=== PATIENT | female | born 1935 | race Two or more races ===

== ENCOUNTER 2023-01-27 00:14 | Inpatient (IN) | payer MEDICAID, MEDICARE, OTHER ==
[~2023-01-27] VITALS: Ht 162.6 cm; Wt 82.0 kg
[2023-01-27 00:37] VITALS: PULSE 63; RESP 20; O2SAT 97
[2023-01-27] MEDS ORDERED: KETOROLAC TROMETH 30 MG/ML 1ML VIAL IV ONE (01:30)
[2023-01-27 04:52] LABS: Basophils # (auto) 0.1 10 ^3/uL (0-0.2); Basophils % (auto) 0.4 % (0.0-2.0); Eosinophils # (auto) 0.5 10 ^3/uL (0-0.8); Eosinophils % (auto) 3.4 % (0.0-7.0); Hemoglobin 9.3 g/dL (12.2-16.2); Lymphocytes # (auto) 4.8 10 ^3/uL (0.4-5.4); Lymphocytes % (auto) 30.7 % (10.0-50.0); Mean Corpuscular Hemoglobin 29.3 pg (28.0-32.0); Mean Corpuscular Hgb Conc. 33.1 g/dL (32.0-36.0); Mean Corpuscular Volume 88.4 fL (80.0-100.0); Monocytes # (auto) 1.1 10 ^3/uL (0-1.3); Monocytes % (auto) 6.8 % (0.0-12.0); Neutrophils # (auto) 9.1 10 ^3/uL (1.6-8.6); Neutrophils % (auto) 58.7 % (37.0-80.0); Red Blood Cells 3.17 10^6/uL (4.0-5.20); Red Cell Distribution Width 16.8 % (11.8-14.3); White Blood Cell 15.6 10^3/uL (4.4-10.8)
[2023-01-27 05:11] LABS: BUN/Creatinine Ratio 35.9 (10.0-20.0); Calcium 8.9 mg/dL (8.5-10.1); Magnesium 1.9 mg/dL (1.6-2.6); Potassium 3.7 mmol/L (3.5-5.1)
[2023-01-27 05:14] LABS: Bilirubin, Total 0.1 mg/dL (0.2-1.0); Total Protein 6.7 g/dL (6.4-8.2)
[2023-01-27] MEDS ORDERED: VANCOMYCIN 1GM/250ML 250 ML IV ONE (05:30)
[2023-01-27] MEDS ORDERED: PIPERACILLIN-TAZOB 3.375GM 100 ML IV ONE (05:30)
[2023-01-27] MEDS ORDERED: DEXTROSE (50%) 50ML SYRG IV ONE (05:30)
[2023-01-27] MEDS ORDERED: D5W/SOD CHL 0.45% 1,000 ML IV ONE (05:30)
[2023-01-27] MEDS ORDERED: ONDANSETRON HCL 4 MG/2 ML VIAL IV PRN (05:45)
[2023-01-27] MEDS ORDERED: DEXTROSE (50%) 50ML SYRG IV PRN (05:45)
[2023-01-27] MEDS ORDERED: DOCUSATE SOD 100 MG CAP PO PRN (05:45)
[2023-01-27] MEDS ORDERED: MORPHINE SULFATE INJ 2 MG/ml SYRG IV PRN (05:45)
[2023-01-27] MEDS ORDERED: HYDROcodone-ACET 5/325MG TAB PO PRN (05:45)
[2023-01-27] MEDS ORDERED: NITROGLYCERIN 0.4 MG SL TAB SL PRN (05:45)
[2023-01-27] MEDS ORDERED: VANCOMYCIN PER PHARMACY 0 MG IV SCH (05:45)
[2023-01-27] MEDS: cefTRIAXone 1GM/50ML D5W 50 ML IV SCH (08:51)
[2023-01-27] MEDS: InsuLIN REG 1unit/0.01ml Soln (100units/ml) SC SCH ×4 (08:51→22:22)
[2023-01-27] MEDS: ACCU-CHEK COMFORT CURVE STRIP VI SCH ×4 (08:51→21:40)
[2023-01-27 09:40] VITALS: PULSE 58; RESP 20; O2SAT 96
[2023-01-27] MEDS ORDERED: METO25TA36 PO (12:46)
[2023-01-27] MEDS ORDERED: ATOR20TA50 PO (12:46)
[2023-01-27] MEDS ORDERED: TRAZ-228 PO (12:46)
[2023-01-27] MEDS ORDERED: NIFE90TA75 PO (12:46)
[2023-01-27] MEDS ORDERED: GABA-1250 PO (12:46)
[2023-01-27] MEDS ORDERED: GLIP5TAB12 PO (12:46)
[2023-01-27] MEDS ORDERED: LISI2.5T47 PO (12:46)
[2023-01-27] MEDS ORDERED: ALPR0.5T PO (12:46)
[2023-01-27] MEDS ORDERED: ESCI5TAB PO (12:46)
[2023-01-27] MEDS ORDERED: METF-370 PO (12:46)
[2023-01-27] MEDS ORDERED: hydrALAZINE HCL 20 MG/ML VL IV PRN ×2 (13:30→17:00)
[2023-01-27] MEDS: ALPRAZolam 0.5 MG TAB PO PRN (14:48)
[2023-01-27] MEDS: GABAPENTIN 300 MG CAP PO SCH ×2 (14:48→22:21)
[2023-01-27 17:24] LABS: Cholesterol 118 mg/dL (< 200)
[2023-01-27 17:26] LABS: HDL Cholesterol 45 mg/dL (40-59); LDL Cholesterol 55 mg/dL (< 100); Triglycerides 141 mg/dL (< 150)
[2023-01-27] MEDS ORDERED: PATIENTS OWN MEDICATION (Trazodone Hcl 50 MG) PO SCH (18:00)
[2023-01-27] MEDS: ATORVASTATIN 20 MG TAB PO SCH (18:58)
[2023-01-28] VITALS (10 sets, daily range): BP systolic 0–174; BP diastolic 39–68; PULSE 47–65; RESP 16–20; TEMP 98.3–99.3; O2SAT 94–99
[2023-01-28] MEDS: VANCOMYCIN 1GM/250ML 250 ML IV SCH ×2 (00:30→18:21)
[2023-01-28] MEDS: InsuLIN REG 1unit/0.01ml Soln (100units/ml) SC SCH ×4 (06:06→21:23)
[2023-01-28] MEDS: GABAPENTIN 300 MG CAP PO SCH ×3 (06:19→21:21)
[2023-01-28] MEDS: ACCU-CHEK COMFORT CURVE STRIP VI SCH ×4 (06:20→20:55)
[2023-01-28 07:12] LABS: Basophils # (auto) 0 10 ^3/uL (0-0.2); Basophils % (auto) 0.5 % (0.0-2.0); Eosinophils # (auto) 0.6 10 ^3/uL (0-0.8); Eosinophils % (auto) 5.8 % (0.0-7.0); Hematocrit 25.8 % (36.0-46.0); Hemoglobin 8.6 g/dL (12.2-16.2); Lymphocytes # (auto) 2.1 10 ^3/uL (0.4-5.4); Lymphocytes % (auto) 20.8 % (10.0-50.0); Mean Corpuscular Hemoglobin 29.8 pg (28.0-32.0); Mean Corpuscular Hgb Conc. 33.2 g/dL (32.0-36.0); Mean Corpuscular Volume 89.8 fL (80.0-100.0); Monocytes # (auto) 0.6 10 ^3/uL (0-1.3); Monocytes % (auto) 6.3 % (0.0-12.0); Neutrophils # (auto) 6.7 10 ^3/uL (1.6-8.6); Neutrophils % (auto) 66.6 % (37.0-80.0); Nucleated Red Blood Cells % 0.1 %; Red Blood Cells 2.87 10^6/uL (4.0-5.20); Red Cell Distribution Width 16.8 % (11.8-14.3); White Blood Cell 10.1 10^3/uL (4.4-10.8)
[2023-01-28 07:18] LABS: Calcium 8.6 mg/dL (8.5-10.1); Potassium 3.7 mmol/L (3.5-5.1)
[2023-01-28 07:21] LABS: Albumin 2.7 g/dL (3.4-5.0); BUN/Creatinine Ratio 27.8 (10.0-20.0)
[2023-01-28 07:24] LABS: Bilirubin, Total 0.3 mg/dL (0.2-1.0); Total Protein 6.4 g/dL (6.4-8.2)
[2023-01-28] MEDS: cefTRIAXone 1GM/50ML D5W 50 ML IV SCH (08:38)
[2023-01-28] MEDS ORDERED: PATIENTS OWN MEDICATION (Nifedipine (Nifedipine Er) 1 TAB) PO SCH (10:00)
[2023-01-28] MEDS ORDERED: LISINOPRIL 5 MG TAB PO SCH (10:00)
[2023-01-28] MEDS ORDERED: PATIENTS OWN MEDICATION (Escitalopram Oxalate (Lexapro) 1 TAB) PO SCH (10:00)
[2023-01-28] MEDS: ASPirin 81 mg TAB PO SCH (11:11)
[2023-01-28] MEDS: LISINOPRIL 10 MG TAB PO SCH (11:27)
[2023-01-28 12:47] LABS: Urine Bacteria NONE SEEN /hpf (None Seen); Urine Blood Negative /uL (Negative); Urine Budding Yeast OCCASIONAL /hpf (None Seen); Urine Clarity HAZY (Clear); Urine Hyaline Cast FEW /lpf (0 - 2); Urine Protein, UAD 1+ (Negative); Urine Specific Gravity 1.011 (1.001-1.035); Urine Urobilinogen Normal (Negative); Urine WBC 138 /hpf (0 - 5)
[2023-01-28 12:50] LABS: Urine Color Straw (Yellow)
[2023-01-28 13:12] LABS: Hepatitis B Surface Antigen Negative (Negative); Hepatitis C Antibody Negative (Negative)
[2023-01-28] MEDS: traMADol HCL 50 MG TAB PO PRN (14:12)
[2023-01-28] MEDS: CITALOPRAM HYDROBR 20 MG TAB PO SCH (16:11)
[2023-01-28] MEDS: NIFEdipine ER 30 MG TAB PO SCH (16:18)
[2023-01-28] MEDS: traZODone HCL 50 MG TAB PO SCH (17:35)
[2023-01-28] MEDS: ATORVASTATIN 20 MG TAB PO SCH (18:20)
[2023-01-28] MEDS: ALPRAZolam 0.5 MG TAB PO PRN (22:28)
[2023-01-29 05:00] VITALS: BP 112/67; PULSE 47; RESP 17; TEMP 98.3; O2SAT 94
[2023-01-29] MEDS: ACETAMINOPHEN 325 MG TAB PO PRN ×2 (05:53→21:00)
[2023-01-29] MEDS: GABAPENTIN 300 MG CAP PO SCH ×3 (05:53→21:00)
[2023-01-29] MEDS: ACCU-CHEK COMFORT CURVE STRIP VI SCH ×4 (05:58→21:07)
[2023-01-29] MEDS: InsuLIN REG 1unit/0.01ml Soln (100units/ml) SC SCH ×4 (06:12→21:08)
[2023-01-29 09:00] VITALS: BP 118/42; PULSE 64; RESP 16; TEMP 97.7; O2SAT 98
[2023-01-29] MEDS: ASPirin 81 mg TAB PO SCH (09:54)
[2023-01-29] MEDS: cefTRIAXone 1GM/50ML D5W 50 ML IV SCH (09:54)
[2023-01-29] MEDS: LISINOPRIL 10 MG TAB PO SCH (09:55)
[2023-01-29] MEDS: CITALOPRAM HYDROBR 20 MG TAB PO SCH (09:56)
[2023-01-29] MEDS: NIFEdipine ER 30 MG TAB PO SCH (09:57)
[2023-01-29] MEDS: traMADol HCL 50 MG TAB PO PRN (10:14)
[2023-01-29] MEDS: VANCOMYCIN 1GM/250ML 250 ML IV SCH (12:33)
[2023-01-29 17:14] VITALS: BP 125/34; PULSE 49; RESP 19; TEMP 98.7; O2SAT 99
[2023-01-29] MEDS: ATORVASTATIN 20 MG TAB PO SCH (18:00)
[2023-01-29] MEDS: traZODone HCL 50 MG TAB PO SCH (18:47)
[2023-01-29 19:03] VITALS: PULSE 44
[2023-01-29 20:00] VITALS: BP 112/46; PULSE 49; PULSE 52; RESP 18; TEMP 98.5; O2SAT 96
[2023-01-29 21:23] VITALS: BP 112/46; PULSE 49; RESP 18; TEMP 98.5; O2SAT 96
[2023-01-29] MEDS: ALPRAZolam 0.5 MG TAB PO PRN (23:30)
[2023-01-30] VITALS (7 sets, daily range): BP systolic 110–147; BP diastolic 37–48; PULSE 36–64; RESP 14–19; TEMP 97.9–98.9; O2SAT 92–98
[2023-01-30] MEDS: VANCOMYCIN 1GM/250ML 250 ML IV SCH ×2 (05:45→23:42)
[2023-01-30] MEDS: GABAPENTIN 300 MG CAP PO SCH ×3 (05:53→21:43)
[2023-01-30] MEDS: ACCU-CHEK COMFORT CURVE STRIP VI SCH ×4 (05:57→21:58)
[2023-01-30] MEDS: InsuLIN REG 1unit/0.01ml Soln (100units/ml) SC SCH ×4 (05:58→21:58)
[2023-01-30] MEDS: cefTRIAXone 1GM/50ML D5W 50 ML IV SCH (09:00)
[2023-01-30] MEDS: ASPirin 81 mg TAB PO SCH (09:24)
[2023-01-30] MEDS: LISINOPRIL 10 MG TAB PO SCH (09:24)
[2023-01-30] MEDS: NIFEdipine ER 30 MG TAB PO SCH (09:25)
[2023-01-30] MEDS: CITALOPRAM HYDROBR 20 MG TAB PO SCH (09:25)
[2023-01-30] MEDS: ATORVASTATIN 20 MG TAB PO SCH (17:49)
[2023-01-30] MEDS: traZODone HCL 50 MG TAB PO SCH (17:49)
[2023-01-31 04:30] VITALS: BP 117/40; PULSE 61; RESP 18; TEMP 98.4; O2SAT 96
[2023-01-31] MEDS: GABAPENTIN 300 MG CAP PO SCH ×2 (06:00→14:06)
[2023-01-31] MEDS: InsuLIN REG 1unit/0.01ml Soln (100units/ml) SC SCH ×3 (07:00→17:00)
[2023-01-31] MEDS: ACCU-CHEK COMFORT CURVE STRIP VI SCH ×3 (07:00→17:00)
[2023-01-31 07:30] VITALS: BP 135/82; PULSE 57; PULSE 58; RESP 17; TEMP 98.2; O2SAT 98
[2023-01-31 09:00] VITALS: BP 135/52; PULSE 58; RESP 17; TEMP 98.2; O2SAT 98
[2023-01-31] MEDS: cefTRIAXone 1GM/50ML D5W 50 ML IV SCH (09:08)
[2023-01-31] MEDS: CITALOPRAM HYDROBR 20 MG TAB PO SCH (10:08)
[2023-01-31] MEDS: ASPirin 81 mg TAB PO SCH (10:08)
[2023-01-31] MEDS: NIFEdipine ER 30 MG TAB PO SCH (10:09)
[2023-01-31] MEDS: LISINOPRIL 10 MG TAB PO SCH (10:09)
[2023-01-31] MEDS ORDERED: LEVO500T91 PO (12:46)
[2023-01-31 13:00] VITALS: BP 149/48; PULSE 61; RESP 17; TEMP 98.5; O2SAT 98
[2023-01-31 13:46] VITALS: BP 135/52; PULSE 58; RESP 17; TEMP 98.2; O2SAT 98
[2023-01-31 17:12] VITALS: BP 118/49; PULSE 57; RESP 18; TEMP 97.9; O2SAT 99
[2023-01-31] MEDS: ATORVASTATIN 20 MG TAB PO SCH (18:56)
[2023-01-31] MEDS: VANCOMYCIN 1GM/250ML 250 ML IV SCH (18:56)
[2023-01-31] MEDS: traZODone HCL 50 MG TAB PO SCH (18:56)
== END 2023-01-31 19:00 | disposition home health service (06) | DRG 638 ==
LOC: EDBD 00:14 → ER 00:14 → TELE 05:52 → TELE-EAST 23:03
PROVIDERS: ADMIT Nurse Practitioner Family; ATTEND Internal Medicine
DX: E11.649 Type 2 diabetes mellitus with hypoglycemia without coma (principal); N39.0 Urinary tract infection, site not specified; R00.1 Bradycardia, unspecified; E78.5 Hyperlipidemia, unspecified; I10 Essential (primary) hypertension; E66.9 Obesity, unspecified; E88.09 Other disorders of plasma-protein metabolism, not elsewhere classified; E11.40 Type 2 diabetes mellitus with diabetic neuropathy, unspecified; D72.829 Elevated white blood cell count, unspecified; M25.562 Pain in left knee; Z68.31 Body mass index [BMI] 31.0-31.9, adult; E11.42 Type 2 diabetes mellitus with diabetic polyneuropathy; R09.89 Other specified symptoms and signs involving the circulatory and respiratory systems
CPT/HCPCS: 36415; 71045; 80053; 80061; 80202; 81001; 82010; 82962; 83036; 83690; 83735; 83930; 84443; 84484; 85025; 86803; 87040; 87081; 87340; 93005; 93306; 96365; 97163; G0378; J0696; J1815; J1885; J2543

== ENCOUNTER 2023-02-04 21:55 | Inpatient (IN) | payer MEDICARE ==
[~2023-02-04] VITALS: Ht 160 cm; Wt 60.0 kg
[~2023-02-04 21:55] MED LIST: ALPR0.5T PO; ATOR20TA50 PO; ESCI5TAB PO; GABA-1250 PO; GLIP5TAB12 PO; LEVO500T91 PO; LISI2.5T47 PO; METF-370 PO; NIFE90TA75 PO; TRAZ-228 PO
[2023-02-04 22:42] LABS: Basophils # (auto) 0.1 10 ^3/uL (0-0.2); Basophils % (auto) 0.7 % (0.0-2.0); Eosinophils # (auto) 0.3 10 ^3/uL (0-0.8); Eosinophils % (auto) 3.7 % (0.0-7.0); Hematocrit 27.9 % (36.0-46.0); Hemoglobin 9.3 g/dL (12.2-16.2); Lymphocytes # (auto) 2.2 10 ^3/uL (0.4-5.4); Lymphocytes % (auto) 25.1 % (10.0-50.0); Mean Corpuscular Hemoglobin 29.5 pg (28.0-32.0); Mean Corpuscular Hgb Conc. 33.4 g/dL (32.0-36.0); Mean Corpuscular Volume 88.3 fL (80.0-100.0); Monocytes # (auto) 0.7 10 ^3/uL (0-1.3); Monocytes % (auto) 7.7 % (0.0-12.0); Neutrophils # (auto) 5.5 10 ^3/uL (1.6-8.6); Neutrophils % (auto) 62.8 % (37.0-80.0); Nucleated Red Blood Cells % 0.1 %; Red Blood Cells 3.16 10^6/uL (4.0-5.20); Red Cell Distribution Width 16.5 % (11.8-14.3); White Blood Cell 8.8 10^3/uL (4.4-10.8)
[2023-02-04 23:08] LABS: Albumin 2.9 g/dL (3.4-5.0); Calcium 9.2 mg/dL (8.7-10.4); Potassium 4.3 mmol/L (3.5-5.1)
[2023-02-04 23:13] LABS: BUN/Creatinine Ratio 20.2 (10.0-20.0); Bilirubin, Total 0.1 mg/dL (0.2-1.0); Total Protein 7.3 g/dL (6.4-8.2)
[2023-02-05] MEDS ORDERED: HYDROcodone-ACET 5/325MG TAB PO PRN (00:45)
[2023-02-05] MEDS ORDERED: DEXTROSE (50%) 50ML SYRG IV PRN (00:45)
[2023-02-05] MEDS ORDERED: ONDANSETRON HCL 4 MG/2 ML VIAL IV PRN (00:45)
[2023-02-05] MEDS ORDERED: ACETAMINOPHEN 325 MG TAB PO PRN (00:45)
[2023-02-05 01:55] LABS: INR 1.15 (0.9-1.15); Partial Thromboplastin Time 29.7 SEC (24.5-34.5)
[2023-02-05] MEDS ORDERED: ENOXAPARIN SOD 100 MG/1 ML SYRINGE SC SCH (02:00)
[2023-02-05] MEDS: ACCU-CHEK COMFORT CURVE STRIP VI SCH ×3 (07:33→17:12)
[2023-02-05] MEDS: InsuLIN REG 1unit/0.01ml Soln (100units/ml) SC SCH ×4 (07:34→22:00)
[2023-02-05 07:45] VITALS: O2SAT 98
[2023-02-05] MEDS: ENOXAPARIN SOD 80 MG/0.8ML SYRINGE SC SCH (10:18)
[2023-02-05] MEDS: HCTZ 25 MG TAB PO SCH (10:19)
[2023-02-05] MEDS: PANTOPRAZOLE 40 MG TAB PO SCH (10:19)
[2023-02-05] MEDS: NIFEdipine ER 30 MG TAB PO SCH (10:19)
[2023-02-05 19:35] VITALS: PULSE 78; RESP 16; O2SAT 96
[2023-02-05 22:00] VITALS: BP 159/59; PULSE 58; RESP 17; TEMP 97.8; O2SAT 95
[2023-02-05] MEDS ORDERED: ATORVASTATIN 20 MG TAB PO SCH (22:00)
[2023-02-05 22:21] VITALS: PULSE 58; RESP 17; O2SAT 95
[2023-02-06] MEDS: ACCU-CHEK COMFORT CURVE STRIP VI SCH ×3 (00:25→12:02)
[2023-02-06] MEDS: ENOXAPARIN SOD 80 MG/0.8ML SYRINGE SC SCH ×2 (00:25→10:52)
[2023-02-06 05:00] VITALS: BP 149/60; PULSE 56; RESP 16; TEMP 97.3; O2SAT 96
[2023-02-06] MEDS: InsuLIN REG 1unit/0.01ml Soln (100units/ml) SC SCH ×2 (07:00→11:30)
[2023-02-06 08:00] VITALS: BP 154/69; PULSE 66; RESP 20; TEMP 97.9; O2SAT 93
[2023-02-06 09:00] VITALS: BP 154/69; PULSE 66; RESP 20; TEMP 97.9; O2SAT 93
[2023-02-06] MEDS ORDERED: APIX5TAB PO ×2 (09:47→11:06)
[2023-02-06] MEDS: PANTOPRAZOLE 40 MG TAB PO SCH (10:51)
[2023-02-06] MEDS: NIFEdipine ER 30 MG TAB PO SCH (10:51)
[2023-02-06] MEDS: HCTZ 25 MG TAB PO SCH (10:52)
[2023-02-06 11:56] LABS: INR 1.14 (0.9-1.15); Partial Thromboplastin Time 31.9 SEC (24.5-34.5); Prothrombin Time 11.9 sec (9.3-11.8)
[2023-02-06 11:58] LABS: Basophils # (auto) 0 10 ^3/uL (0-0.2); Basophils % (auto) 0.4 % (0.0-2.0); Eosinophils # (auto) 0.3 10 ^3/uL (0-0.8); Eosinophils % (auto) 3.2 % (0.0-7.0); Hematocrit 30.1 % (36.0-46.0); Hemoglobin 9.9 g/dL (12.2-16.2); Lymphocytes # (auto) 1.5 10 ^3/uL (0.4-5.4); Lymphocytes % (auto) 19.3 % (10.0-50.0); Mean Corpuscular Hemoglobin 29.3 pg (28.0-32.0); Mean Corpuscular Hgb Conc. 33.1 g/dL (32.0-36.0); Mean Corpuscular Volume 88.4 fL (80.0-100.0); Monocytes # (auto) 0.4 10 ^3/uL (0-1.3); Monocytes % (auto) 4.7 % (0.0-12.0); Neutrophils # (auto) 5.8 10 ^3/uL (1.6-8.6); Neutrophils % (auto) 72.4 % (37.0-80.0); Nucleated Red Blood Cells % 0.1 %; Red Cell Distribution Width 16.7 % (11.8-14.3)
[2023-02-06 12:19] LABS: Alanine Aminotransferase 14 U/L (7-40); Alkaline Phosphatase 66 U/L (46-116); Anion Gap 10.1 (5-15); BUN/Creatinine Ratio 16.5 (10.0-20.0); Blood Urea Nitrogen 14 mg/dL (9-23); Calcium 9.4 mg/dL (8.5-10.1); Carbon Dioxide 25.9 mmol/L (20-30); Chloride 105 mmol/L (98-107); Glucose 122 mg/dL (74-106); Potassium 4.4 mmol/L (3.5-5.1); Sodium 141 mmol/L (136-145)
[2023-02-06 12:20] LABS: Albumin 3.8 g/dL (3.2-4.8)
[2023-02-06 12:21] LABS: Aspartate Aminotransferase 15 U/L (13-40); Bilirubin, Total 0.3 mg/dL (0.2-1.0); Total Protein 6.5 g/dL (5.7-8.2)
[2023-02-06 12:36] VITALS: BP 149/55; PULSE 55; RESP 20; TEMP 98.5; O2SAT 98
[2023-02-06 14:37] VITALS: BP 149/55; PULSE 66; RESP 20; TEMP 98.5; O2SAT 98
[2023-02-06 16:39] VITALS: BP 148/59; PULSE 77; RESP 20; TEMP 98.1; O2SAT 94
== END 2023-02-06 16:46 | disposition home or self-care (01) | DRG 300 ==
LOC: ER 21:55 → OVERFLOW 02-05 01:20 → WEST WING 02-05 21:34
PROVIDERS: ADMIT Internal Medicine Pulmonary Disease; ATTEND Internal Medicine
DX: I82.401 Acute embolism and thrombosis of unspecified deep veins of right lower extremity (principal); E44.1 Mild protein-calorie malnutrition; E78.5 Hyperlipidemia, unspecified; E11.9 Type 2 diabetes mellitus without complications; I10 Essential (primary) hypertension; Z86.718 Personal history of other venous thrombosis and embolism; Z68.23 Body mass index [BMI] 23.0-23.9, adult
CPT/HCPCS: 36415; 71045; 80053; 82962; 83605; 83880; 85025; 85379; 85610; 85730; 87081; 93970; G0378